=== PATIENT | male | born 1980 | race Caucasian/White ===

== ENCOUNTER 2020-12-18 17:14 | Emergency (ER) | payer SELFPAY ==
[2020-12-18 17:16] VITALS: BP 137/100; PULSE 100; PULSE 87; RESP 13; RESP 16; TEMP 36.9; O2SAT 100; O2SAT 99; BMI 27.1
--- NOTE | 2020-12-18 17:42 | EKG12_ITS ---
Test Reason : ABD PAIN Blood Pressure : / mmHG Vent. Rate : 072 BPM Atrial Rate : 072 BPM P-R Int : 140 ms QRS Dur : 084 ms QT Int : 378 ms P-R-T Axes : 020 077 060 degrees QTc Int : 413 ms Normal sinus rhythm Normal ECG Confirmed by PATEL CHILD, TO ([id number]), supervising film or videotape editor NORMA HOROWITZ ([id number]) on 12/22/2020 9:35:27 AM Referred By: HEATHER Confirmed By:TO SWEENEY MD
--- NOTE | 2020-12-18 17:46 | NURSING ---
NO OLD EKGS
[2020-12-18 17:52] LABS: Absolute Lymphocyte Count 2.14 X10^3/uL (0.83-4.51); Absolute Neutrophil Count 6.2 X10^3/uL (2.0-7.7); Basophil# 0.08 X10^3/uL; Basophil% 0.9 % (0-1); Eosinophil# 0.22 X10^3/uL; Eosinophils% 2.4 % (0-5); Hematocrit 45.7 % (40-54); Hemoglobin 15.5 g/dL (13.0-16.5); Lymphocyte # 2.14 X10^3/ul (4.0); Lymphocyte % 22.9 % (19-41); Mean Corp Hgb Conc 33.9 g/dL (32-36); Mean Corpuscular Hgb 29.8 pg (27.0-32.0); Mean Corpuscular Volume 87.7 fL (80-94); Mean Platelet Vol. 9.6 fl (6.2-12.0); Monocyte# 0.72 X10^3/uL; Monocyte% 7.7 % (0-10); NRBC Flagged by Analyzer 0 % (0-5); Neutrophil # 6.15 X10^3/uL (2.7-7.7); Neutrophil % 65.6 % (47-70); Platelet Count 247 K/mm3 (150-450); RBC Distribution Width CV 11.9 % (11.6-14.6); RBC Distribution Width SD 38.3 fl (35.1-43.9); Red Blood Count 5.21 M/mm3 (4.6-6.2); White Blood Count 9.4 K/mm3 (4.4-11.0)
[2020-12-18] MEDS: 0.9% Normal Saline 1,000 ML 1000 ML IV (17:55)
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
[2020-12-18 18:16] LABS: AST(SGOT) 21 U/L (15-37); Alanine Aminotransfer ALT/SGPT 43 U/L (16-61); Albumin, Serum 3.8 g/dL (3.2-5.0); Alkaline Phosphatase 88 U/L (45-117); Anion Gap 6 (5-15); BUN 9 mg/dL (7-18); Calcium,Total 9.1 mg/dL (8.5-10.1); Chloride 105 mmol/L (98-107); EST Glomerular Filtration Rate 87 mL/min (>60); Est Glom Filt Rate - Afr Amer 106 mL/min (>60); Estimated Creatinine Clearance 100.38 ml/min; Globulin 4.5 g/dL (2.2-4.2); Glucose 93 mg/dL (74-106); Potassium 3.7 mmol/L (3.5-5.1); Protein, Total 8.3 g/dL (6.4-8.2); Sodium Level 140 mmol/L (136-145)
[2020-12-18 18:17] LABS: Bacteria 0 SEEN /hpf (None Seen); Squamous Epithelial Cells - UA 0 SEEN /hpf (0-5)
[2020-12-18 18:26] LABS: Color, Urine Yellow (Yellow); Glucose, Dipstick Normal (Normal); Ketone-Dipstick 5 mg/dl (Negative); Leukocyte Esterase-Dipstick Negative /ul (Negative); Nitrite-Dipstick Negative (Negative); Occult Blood-Urine Negative /ul (Negative); Protein-Dipstick Negative (Negative); Urine Bilirubin Dipstick Negative (Negative); Urine Clarity Clear (Clear); Urine Urobilinogen Normal (Normal)
[2020-12-18 18:37] LABS: Mucous, Urine 2+ /hpf (<or=2+)
[2020-12-18 18:39] LABS: Red Blood Cells-Urine 0-5 SEEN /hpf (0-5)
[2020-12-18 18:40] LABS: White Blood Cells 0-5 SEEN /hpf (0-5)
[2020-12-18 19:14] VITALS: BP 137/93; PULSE 87; RESP 18; O2SAT 96
== END 2020-12-18 19:15 | disposition home or self-care (01) ==
PROVIDERS: Emergency Provider Emergency Medicine
DX: R40.4 Transient alteration of awareness (principal); Z87.891 Personal history of nicotine dependence; Z85.01 Personal history of malignant neoplasm of esophagus
CPT/HCPCS: 80048; 80076; 81001; 84484; 85025; 93005; 96360; 99285; J7030; A4216

== ENCOUNTER 2021-12-25 01:42 | Emergency (ER) | payer SELFPAY ==
[2021-12-25] VITALS (10 sets, daily range): BP systolic 121–140; BP diastolic 79–92; PULSE 78–112; RESP 14–18; TEMP 36.7–37.2; O2SAT 97–100; BMI 27.1
--- NOTE | 2021-12-25 02:13 | RAD_ITS ---
STUDY: X-RAY - RIGHT TIBIA AND FIBULA REASON FOR EXAM: Male, 41 years old patient with right leg injury. TECHNIQUE: AP and lateral view(s) of the tibia and fibula were obtained. COMPARISON: None. FINDINGS: Normal visualized tibia. Normal visualized fibula. There is no demonstrated acute fracture. There is non-specific soft tissue swelling. RAD/Tibia & Fibula 2 Views IMPRESSION: Soft tissue swelling without obvious fracture. If there is still clinical concern for acute fracture, follow-up radiographs in 7-10 days maybe helpful in evaluating a healing radiographically occult fracture. Electronically Signed: Franci Nieves MD at 3:23 EDT ,
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
--- NOTE | 2021-12-25 02:20 | RAD_ITS ---
STUDY: X-RAY - RIGHT ANKLE REASON FOR EXAM: Male, 41 years old patient with right-sided ankle injury. TECHNIQUE: 3 view(s) of the ankle. COMPARISON: Prior comparison studies are not available for review at this time. FINDINGS: Normal visualized distal tibia and fibula. Normal medial and lateral malleoli. Normal tibiotalar articulation and ankle mortise. There is a posterior calcaneal enthesophyte. The tarsal bones have generally normal appearance and alignment. Joint spaces are within normal limits. There is no demonstrated fracture. There is moderately severe soft tissue swelling and small ankle effusion. RAD/Ankle min 3 Views IMPRESSION: Soft tissue swelling and ankle effusion. If there is still clinical concern for acute fracture, follow-up radiographs in 7-10 days maybe helpful in evaluating a healing radiographically occult fracture. Electronically Signed: Franci Nieves MD at 3:21 EDT ,
[2021-12-25 04:10] LABS: Absolute Lymphocyte Count 1.95 X10^3/uL (0.83-4.51); Absolute Neutrophil Count 6.8 X10^3/uL (2.0-7.7); Basophil# 0.07 X10^3/uL; Basophil% 0.7 % (0-1); Eosinophil# 0.27 X10^3/uL; Eosinophils% 2.7 % (0-5); Hematocrit 39.8 % (40-54); Hemoglobin 13.4 g/dL (13.0-16.5); Lymphocyte # 1.95 X10^3/ul (0.83-4.51); Lymphocyte % 19.6 % (19-41); Mean Corp Hgb Conc 33.7 g/dL (32-36); Mean Corpuscular Hgb 29.9 pg (27.0-32.0); Mean Corpuscular Volume 88.8 fL (80-94); Mean Platelet Vol. 9.1 fl (6.2-12.0); Monocyte# 0.79 X10^3/uL; NRBC Flagged by Analyzer 0 % (0-5); Neutrophil # 6.81 X10^3/uL (2.7-7.7); Neutrophil % 68.6 % (47-70); Platelet Count 229 K/mm3 (150-450); RBC Distribution Width CV 12.5 % (11.6-14.6); Red Blood Count 4.48 M/mm3 (4.6-6.2); White Blood Count 9.9 K/mm3 (4.4-11.0)
[2021-12-25 04:24] LABS: Alcohol, Blood (Medical)-Serum < 3.0 mg/dL
[2021-12-25 04:26] LABS: Anion Gap 7 (5-15); BUN 15 mg/dL (7-18); BUN/Creat Ratio 21.2 RATIO (10-20); Calcium,Total 8.9 mg/dL (8.5-10.1); Chloride 108 mmol/L (98-107); Creatinine, Serum 0.71 mg/dL (0.70-1.30); EST Glomerular Filtration Rate 129 mL/min (>60); Est Glom Filt Rate - Afr Amer 156 mL/min (>60); Estimated Creatinine Clearance 139.95 ml/min; Glucose 90 mg/dL (74-106); Potassium 3.4 mmol/L (3.5-5.1); Sodium Level 140 mmol/L (136-145)
[2021-12-25 05:49] LABS: Amphetamine Urine VISTA POSITIVE (<1000 ng/mL); Barbiturate Urine VISTA NEGATIVE (< 200 ng/mL); Benzodiazepine Urine VISTA NEGATIVE (< 200 ng/mL); Cocaine Urine VISTA NEGATIVE (< 300 ng/mL); Ecstacy Urine VISTA POSITIVE (< 500 ng/mL); Methadone Urine VISTA NEGATIVE (< 300 ng/mL); PCP Urine VISTA NEGATIVE (< 25 ng/mL); THC Urine VISTA NEGATIVE (< 50 ng/mL); Vista UDS pH Range 5
--- NOTE | 2021-12-25 10:46 | ED.RN ---
PER CRISIS PT TO BE PINK SLIPPED. PT ASSISTED IN PLACING GOWN AND REMOVING STREET CLOTHES. PT GLASSES AT BEDSIDE FOR VISUAL AIDE. PT INQUIRING ABOUT X-RAY RESULTS. MD AWARE. PT GIVEN SNACK AND DRINK. PT RESTING IN ROOM WITH EYES CLOSED. RESPIRES EVEN AND UNLABORED.
--- NOTE | 2021-12-25 19:17 | ED.RN ---
pt awoke from sleep and asked what he was still here for. pt had not been told by staff, crisis, or prior doctors about psychiatric placement. he was informed by this rn that we are awaiting placement at a psychiatric facility. he became verbally confrontational and loud. pt requested his personal belongings and a phone to call his dad. I explained that he couldn't leave and that dr would be in to explain need for crisis evaluation. father was called at pt request. he screamed into the phone. help me dad. they are senting me psych. after brief phone call pt stated just wait till i get out of here. he's . just wait. ill find edwar mina. threats were passed onto hro on staff. medications offered to patient to help him relax. when asked he said i good. i don't need anything right now. pt began to cry in bed. pt is resting in bed requesting to call his girlfriend. no phone number on file. shila sevilla rn [phone]
--- NOTE | 2021-12-25 22:00 | ED.RN ---
In to speak with pt, he pt notes he wante to know what was going on with his right leg, explained that xray shows no fracture however, is swollen and recommend that it be followed up on if it still bothers him. Asked pt if he wanted anything for pain, however he said no. He did say he was having a lot of anxiety. He did agree that I could ask the doctor to have something for anxiety. Spoke with Dr. Liu about pt, she gave order for po Ativan 0.5 mg and 400 mg of ibuprofen. took meds to pt, he refused at this time. Pt is aware he can call for those meds if he would like. Also offered to wrap ankle, he refused.
--- NOTE | 2021-12-25 22:20 | ED.RN ---
CALLED CRISIS FOR A UPDATE ON THE PATIENT, CRISIS FORGOT TO CALL US WITH THE ACCEPTANCE. THE PATIENT IS GOING TO [facility] IN [place]. THEY HAVE SET UP THE TRANSPORT ALREADY WITH [facility]. THIS PATIENT CANT LEAVE UNTIL 0800, [facility] WILL BE HERE AROUND [address] MANJARREZ IS ACCEPTING, NURSE TO NURSE IS [phone].
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
[2021-12-25] MEDS: Ziprasidone IM 20 MG/ML VIAL IM (23:34)
[2021-12-26] MEDS: Ibuprofen 200 MG Tablet 400 MG PO (00:09)
--- NOTE | 2021-12-26 01:00 | ED.RN ---
PT TAKEN OUT OF 2 RESTRAINTS, RESTING, CALM, NO DISTRESS
--- NOTE | 2021-12-26 01:15 | ED.RN ---
PT OUT OF ALL RESTRAINTS, RESTING IN BED, COOPERATIVE
[2021-12-26 04:00] VITALS: RESP 16
[2021-12-26 05:55] VITALS: RESP 14
[2021-12-26 06:11] VITALS: BP 134/74; PULSE 84; RESP 16; O2SAT 96
--- NOTE | 2021-12-26 08:24 | NURSING ---
[facility] [facility] here on standby. ems here for transport to take pt to [facility]. pt yelling and ripping off gown saying take me to [facility] because i aint going to a mental hospital pt very aggitated and pacing in room attempting to leave. new order for elijah kendall. 3 police officers at bedside. rn anesthetist in to administer med
--- NOTE | 2021-12-26 09:06 | ED.RN ---
0838-pt left with pd to caged vehicle for transport to [facility]. pt report called to lexus gutierrez
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
[2021-12-26] MEDS: LORazepam 2 MG/ML Syringe IM (09:15)
[2021-12-26] MEDS: Ziprasidone IM 20 MG/ML VIAL IM (09:15)
--- NOTE | 2021-12-26 09:25 | ED.RN ---
d was called to asssist in getting pt to transport vehicle. pt was combative and threatening and requesting to go to assisted. once pt realized he was going to get medicated pt decided to cooperate. pt was ambulated to vehicle with the assistance of d. transport left with pt. dispatch later called and stated the transport was returning with the pt and [facility] was called to assist. pt was yelling screaming in the back seat and trying to kick in the cage as well as was trying to climb into the trunk and was actively pulling things out of the trunk. upon arrival to the er pt was placed immediately on the cart with the assistance of jayleen and restraints were applied. pt was taken into rm 4. when attempted to medicate pt he sat up ands was trying to flail around and grab staff. pt was assisted back on the the bed and arms held to protect staff by this nurse as another nurse then medicated the pt. once he was released he again attempted to grab the other nurse and was placed back onto his back on the bed and was told his behavior will not be tolerated and this is why he was being medicated.
[2021-12-26 10:00] VITALS: BP 133/86; PULSE 100; RESP 16; O2SAT 96
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
--- NOTE | 2021-12-26 10:56 | ED.RN ---
1020-pt quiet in bed sedated for past 30min and meeting criteria of dc restraints. pt restraints dc'd and will set up transport for pt to go to [facility] again
--- NOTE | 2021-12-26 11:26 | ED.RN ---
pt up to wc and following direction and cooperative but drowsy. vital signs stable. belongings sent with pt.
--- NOTE | 2021-12-26 11:49 | ED.RN ---
transport arrived and pt taken out to vehicle by wheelchair without difficulty. pt loaded and seat belt placed. [facility] called with a [facility] as requested and they then stated the pt needed to be held for 4 hrs. it was explained to them that when they were notified pt was returning and would be medicated they told nurse they were still accepting him and just needed to be notified of a new eta. they ten stated no he should not leave [facility] until 1300. explained the pt was already on his way. [facility] stated he was not to leave before 1300. called to notify transport, informed dr canela and dr vasquez of the situation and both felt that it was unreasonable since we followed their instructions and the pt should continue on transport.
== END 2021-12-26 11:30 ==
PROVIDERS: Emergency Medicine; Emergency Provider Emergency Medicine; Visit Provider Emergency Medicine
DX: F22 Delusional disorders (principal); S80.11XA Contusion of right lower leg, initial encounter; S93.401A Sprain of unspecified ligament of right ankle, initial encounter; W19.XXXA Unspecified fall, initial encounter; F99 Mental disorder, not otherwise specified; M25.432 Effusion, left wrist; F17.210 Nicotine dependence, cigarettes, uncomplicated; F41.9 Anxiety disorder, unspecified; Z78.1 Physical restraint status
CPT/HCPCS: 73590; 73610; 80048; 80307; 82077; 85025; 87811; 96372; 99282; J3486

== ENCOUNTER 2023-02-13 13:11 | Outpatient (REF) | payer SELFPAY ==
[2023-02-13 13:12] VITALS: BP 138/65; PULSE 105; RESP 18; TEMP 37.1; O2SAT 97; BMI 24.1
[2023-02-13 13:15] VITALS: BP 155/96; PULSE 112; RESP 18; O2SAT 96
--- NOTE | 2023-02-13 13:20 | RAD_ITS ---
STUDY: X-RAY - RIGHT TIBIA AND FIBULA REASON FOR EXAM: Male, 43 years old. Pain following injury. TECHNIQUE: 3 view(s) of the tibia and fibula were obtained. COMPARISON: None. FINDINGS: Normal visualized tibia. Normal visualized fibula. The soft tissue structures are unremarkable. RAD/Tibia & Fibula 2 Views IMPRESSION: Normal x-ray examination of the tibia and fibula. Electronically Signed: Juan Carlos Lucero MD at 14:08 EDT ,
--- NOTE | 2023-02-13 13:20 | RAD_ITS ---
STUDY: X-RAY CHEST REASON FOR EXAM: Male, 43 years old. Chest wall trauma TECHNIQUE: PA and lateral views of the chest. COMPARISON: None. FINDINGS: The lungs are clear and expanded. There is no demonstrated pleural abnormality. Normal size heart. Normal mediastinum and angel. Normal visualized pulmonary arteries. Normal visualized aortic arch and descending thoracic aorta. Normal visualized thoracic spine. Normal visualized ribs, clavicles, and shoulders. There is no demonstrated abnormality of the visualized soft tissue structures of the upper abdomen. RAD/Chest PA and Lateral IMPRESSION: Normal x-ray examination of the chest. Electronically Signed: Juan Carlos Lucero MD at 14:07 EDT ,
--- NOTE | 2023-02-13 13:20 | RAD_ITS ---
STUDY: X-RAY - PELVIS AND RIGHT HIP REASON FOR EXAM: Male, 43 years old. Right hip trauma TECHNIQUE: 3 views of the pelvis and hip. COMPARISON: None. FINDINGS: There is a non-specific bowel gas pattern. Normal visualized soft tissue structures. Normal bilateral iliac wings, sacroiliac joints and visualized sacrum. Normal bilateral superior and inferior pubic rami. Normal pubic symphysis. Normal bilateral ischial tuberosities. Normal visualized femoral head. Normal acetabulum. Normal hip joint. RAD/HIP, UNI W/ Pelvis 2-3 Views IMPRESSION: Normal x-ray examination of the pelvis and hip. Electronically Signed: Juan Carlos Lucero MD at 14:08 EDT ,
--- NOTE | 2023-02-13 13:22 | EDS_ITS ---
HPI History of Present Illness Chief Complaint: Lower Extremity Injury Detail of Chief Complaint: Restrained by the police complaining pain. Informant: patient Onset/Context/Timing Onset: Today Context: Sudden Onset Timing: Continuous Current Severity: Mild Maximum Severity: Mild Narrative Narrative: 43-year-old male states he has a past medical history of esophageal cancer. History of methamphetamine abuse. Today the police were at his residence and were arresting him when it became physical. He had to restrain him. He states he is having discomfort to his chest wall, right hip and right lower leg. Prior to the incident he denies any complaints. Prior similar symptoms: No Recent Illness/Hospitalization: No PFSH PFSH Home Medications NK 12/18/20 [History Last Taken Unknown] Allergy/AdvReac Type Severity Reaction Status Date / Time bee venom protein (honey bee) Allergy Anaphylaxis Verified 02/13/23 13:23 Penicillins [PCN] Allergy NEEDS Verified 02/13/23 13:23 FOLLOW-UP Social History Smoking Status: Current every day smoker tobacco type: cigarettes ROS ROS ED ROS Narrative Denies recent illness. Review of Systems ROS Unobtainable: Denies due to encephalopathy Constitutional Constitutional ED: Denies chills or fever(s) Eyes Eyes: Denies blurry vision ENT ENT ED: Denies ear pain Cardiovascular Cardiovascular: Reports chest pain Respiratory/Chest Respiratory/Chest: Denies cough or dyspnea Gastrointestinal Gastrointestinal: Denies abdominal pain Genitourinary Genitourinary ED: Denies dysuria or hematuria Musculoskeletal Musculoskeletal: Denies arthralgias Integumentary Denies abscess Neurologic Neurologic: Denies headache(s) Psychiatric Psychiatric: Denies anxiety Endocrine Endocrinology: Denies cold intolerance Hematologic/Lymphatic Hematologic/Lymphatic: Reports none Allergic/Immunologic Allergic/Immunologic ED: Denies mouth swelling or tongue swelling EXAM Physical Exam Narrative Exam Narrative: -year-old male no acute distress. Handcuffed to the bed with his right wrist. Vital signs stable afebrile. Pulse ox 97% on room air no hypoxia. H EENT exam pupils round reactive light. No signs of trauma to his face or dentition. Scalp nontender. No lacerations or hematomas. C-spine nontender trachea midline. Back nontender. Lungs clear to auscultation bilaterally. Heart regular rhythm rate about 105 no murmur. Chest wall mild diffuse tenderness. No crepitus or subcu air. No bruising. Abdomen soft nontender normal bowel sounds no peritoneal signs. No bruising. Pelvic girdle intact. Complaining of tenderness to his right hip. No shortening or rotation. Able to flex extend both knees. Dorsi plantarflexion normal both feet. Tenderness to his anterior right castillo. No deformity. Neurologically is awake and alert with no focal motor deficits. Exam benign. Const Vital Signs: 02/13/23 13:12 02/13/23 13:15 02/13/23 13:28 Temperature 98.7 F Temperature Source Temporal Pulse Rate 105 H 112 H Respiratory Rate 18 18 Respiratory Effort Normal Labored Blood Pressure 138/65 H 155/96 H Blood Pressure Mean 89 115 Pulse Ox 97 96 Oxygen Delivery Method Room Air Room Air Positive well nourished and well developed; Negative for obese, cachectic, contractures or unkempt General Appearance ED: well developed and NAD; Negative for unkempt, cachectic, contractures, cyanotic, diaphoretic or pallor Nutritional Appearance: Negative for cachectic or obese HEENT Reports moist mucous membranes; Denies dry mucous membranes Negative for trauma or tenderness Mouth ED: No dry mucous membranes Mouth: No dry mucous membranes Eyes PERRL and EOMs intact bilaterally General Eye ED: Negative for pale conjunctiva or scleral icterus Neck no lymphadenopathy, supple and no JVD General: Negative for tenderness Lymph Lymphatic: Negative for other Chest Wall inspection of chest normal; Negative for palpation of chest normal Chest Narrative: Anterior chest wall tenderness. No crepitance or subcu air. No bruising. Resp normal respiratory effort Effort and Inspection: Negative for retractions Auscultation: Negative for rales, rhonchi or wheezes Cardio regular rate, regular rhythm, S1 normal heart sound, S2 normal heart sound and no murmurs Palpation: Negative for palpable S3 Rate: Negative for bradycardia Rhythm: Negative for abnormal rhythm GI normal to inspection, nondistended, normoactive bowel sounds, non-tender, non- distended and no masses; Negative for hepatosplenomegaly Inspection: Negative for abdominal distention Auscultation: normoactive bowel sounds Palpation: soft; Negative for tender or guarding Back/Spine no CVA tenderness General Back: Negative for CVA tenderness Cervical Spine: Negative for cervical spine tenderness Thoracic Spine / Upper Back: Negative for thoracic spinal tenderness Lumbar Spine / Lower Back: Negative for lumbar spinal tenderness Extremity normal to inspection Extremity Narrative: Tenderness right anterior castillo. No deformity. Right foot neurovascular intact. Mild tenderness right hip no shortening or rotation. No deformity. General Extremety ED: Yes edema and tenderness General Extremity: edema Neuro oriented x3 and CN's II-XII intact bilaterally Sensorium / Orientation: alert; Negative for orientation impaired, lethargic or stuporous Motor Exam: strength 5/5 throughout Psych mental status grossly normal Appearance: Negative for unkempt Attitude: No agitated Mood & Affect: Negative for depressed, anxious or tearful Skin no rashes or lesions noted, no wounds and skin turgor normal General Skin Exam: elasticity normal; Negative for jaundice or pallor Lesions: No lesion noted Rashes: No rashes noted Trauma: Negative for abrasion Wounds: Negative for wounds noted MDM MDM MDM Narrative Medical decision making narrative: 43-year-old male arrested by police. After the arrest he was complaining of chest wall, right hip and right lower leg pain. It was not physical on her occasion to get him subdued. X-rays to be obtained. Exam is benign. Repeat exam patient doing well at 1:52 PM. I went over his x-ray results with him they were all unremarkable. No fractures or dislocations. He will be discharged with the police to go to halfway. He is currently under arrest. He is medically cleared. Motrin and Tylenol for any pain. Radiography Chest X-Ray - ED: 2 View, Read by ED Physician, Heart, Lungs, Mediastinum, Bony Structures, No Acute Disease and Chronic Changes Diagnostic Testing: Right hip and pelvis x-ray multiple views, interpreted by myself shows no acute abnormality. No fracture or dislocation. Right tib-fib x-ray 2 views AP and lateral interpreted by myself shows no acute fracture or dislocation. Chest x-ray, 2 views AP and lateral shows no acute injury. No fracture or dislocation no pneumothorax. Normal cardiac silhouette. Normal mediastinum. Discharge Plan Triage Chief Complaint: Lower Extremity Injury ED Provider: Alexis Craig Dx/Rx/DC Orders Clinical Impression: Chest wall contusion, Contusion of hip, right, Contusion of leg, right Instructions: ED Contusion, Lower Extremity, ED Chest Wall Contusion Prescriptions: No Action NK Primary Care Provider: Care Physician,No Primary Referrals: Destiny Ramon [Non-Staff] - 1 Week if not improving Care Physician,No Primary [Primary Care Provider] - Activity Restrictions/Additional Instructions: Tylenol and Motrin for any pain. The x-rays of your chest, hip and lower leg showed no broken bones. You have bruises you can to be sore. Ice to any sore areas. Follow-up with not improving. Disposition Disposition: Home, Self Care
[2023-02-13 14:04] VITALS: BP 154/98; PULSE 100; RESP 18
== END 2023-02-13 14:05 | disposition home or self-care (01) ==
LOC: ED 13:11
PROVIDERS: Visit Provider Emergency Medicine
DX: S80.11XA Contusion of right lower leg, initial encounter (principal); F11.11 Opioid abuse, in remission; S20.20XA Contusion of thorax, unspecified, initial encounter; S70.01XA Contusion of right hip, initial encounter; F17.210 Nicotine dependence, cigarettes, uncomplicated; Z85.01 Personal history of malignant neoplasm of esophagus; Y04.0XXA Assault by unarmed brawl or fight, initial encounter
CPT/HCPCS: 36415; 71046; 73502; 73590; 99285

== ENCOUNTER 2023-03-10 18:25 | Outpatient (REF) | payer SELFPAY ==
[2023-03-10 18:25] VITALS: BP 139/87; PULSE 93; RESP 18; TEMP 37.1; O2SAT 98; BMI 24.6
--- NOTE | 2023-03-10 18:45 | CT_ITS ---
STUDY: CT BRAIN WITHOUT CONTRAST REASON FOR EXAM: Male, 43 years old. Head trauma RADIATION DOSAGE (If Supplied By Facility): CTDIvol = ( 44.99 ) mGy, DLP = ( 829.85 ) mGycm TECHNIQUE: Transaxial CT imaging of the brain was performed without administration of intravenous contrast material. Individualized dose optimization techniques were used for this CT. COMPARISON: No relevant priors. FINDINGS: Normal soft tissue structures. Normal calvarium. Normal size ventricles and extra-axial spaces for the patient''s age. Normal white matter tracts of the cerebral hemispheres. Normal basal ganglia and thalami. Normal brainstem. Normal cerebellum. There is no intracranial hemorrhage. There are no findings of an acute ischemic infarction. There is mucoperiosteal inflammatory disease of the left maxillary consistent with mild chronic sinusitis. CT/Brain/Head without Contrast IMPRESSION: Normal unenhanced CT scan of the brain. Electronically Signed: Taye Rodriguez (Brooks), at 19:27 EDT ,
--- NOTE | 2023-03-10 18:46 | CT_ITS ---
STUDY: CT ABDOMEN AND PELVIS WITHOUT CONTRAST REASON FOR EXAM: Male, 43 years old. Pain RADIATION DOSAGE (If Supplied By Facility): CTDIvol = ( 6.82 ) mGy, DLP = ( 373.28 ) mGycm TECHNIQUE: Transaxial images were obtained from the dome of the diaphragm to the symphysis pubis without oral contrast, and without intravenous contrast. Sagittal and coronal images were reconstructed. Individualized dose optimization techniques were used for this CT. COMPARISON: None. FINDINGS: The visualized lung bases are unremarkable. The visualized portions of the heart are within normal limits. Normal liver. Normal gallbladder and extrahepatic biliary system. Normal spleen. Normal pancreas. Normal bilateral adrenal glands. Normal right kidney. Normal left kidney. Normal visualized stomach. Normal small intestine. Normal colon. The appendix is visualized and appears normal. There is atherosclerosis of the distal abdominal aorta with relative wall thickening and visible displacement of calcific atherosclerosis away from the outer aortic wall (image [id number] series 2). There is slight induration of the retroperitoneal fat adjacent to the aorta as seen on image 77 of series 602. Normal inferior vena cava. Normal retroperitoneum. Normal urinary bladder. There is a small umbilical hernia containing fat. Normal osseous structures. CT/Abdomen/Pelvis without Cont IMPRESSION: 1. No hydronephrosis or urinary tract calcifications. 2. Limited evaluation of the abdominal aorta given lack of IV contrast. However, relative wall thickening and periaortic fat stranding adjacent to the distal aorta can be associated with aortitis. No comparison study. Recommend evaluation with CT with IV contrast. Electronically Signed: Taye Rodriguez (Brooks), at 19:32 EDT ,
--- NOTE | 2023-03-10 18:46 | EKG12_ITS ---
Test Reason : DYSRHYTHMIA Blood Pressure : / mmHG Vent. Rate : 078 BPM Atrial Rate : 078 BPM P-R Int : 138 ms QRS Dur : 082 ms QT Int : 352 ms P-R-T Axes : 027 065 051 degrees QTc Int : 401 ms Normal sinus rhythm Normal ECG Confirmed by PATEL CHILD, TO ([id number]), script editor NORMA HOROWITZ ([id number]) on 03/13/2023 8:39:33 AM Referred By: JUSTO Confirmed By:TO SWEENEY MD
--- NOTE | 2023-03-10 18:47 | EDS_ITS ---
HPI HPI - GI History of Present Illness Chief Complaint: Head Injury Informant: patient Abdominal Pain/Flank Pain Onset: Today Context: Sudden Onset Timing: Continuous Quality: Cramping Location: Left Flank Current Severity: Mild Maximum Severity: Moderate Worsened by: Nothing Nausea/Vomiting/Emesis GI Symptom: Negative for Nausea or Vomiting Diarrhea/Melena/Hematochezia GI Symptom: Negative for Diarrhea, Melena or Hematochezia Associated Symptoms Associated Symptoms: Negative for Dysuria, Frequency, Hematuria or Urgency Narrative Narrative: 43-year-old male history of esophageal cancer, seizures, diabetes and kidney stones. Said he was in [facility] today currently is incarcerated. Developed left flank pain passed out when he fell he struck his head causing him to have a head injury. Denies any dysuria or hematuria. No fever. No chest pain or shortness of breath. The fall and syncopal episode after that was unwitnessed. There is a deputy in the room. He did not witness the patient's fall. Prior similar symptoms: Yes Recent Illness/Hospitalization: No PFSH PFSH Home Medications NK 12/18/20 [History Last Taken Unknown] Allergy/AdvReac Type Severity Reaction Status Date / Time bee venom protein (honey bee) Allergy Anaphylaxis Verified 02/13/23 13:23 Penicillins [PCN] Allergy NEEDS Verified 02/13/23 13:23 FOLLOW-UP Social History Smoking Status: Current every day smoker tobacco type: cigarettes ROS ROS ED ROS Narrative Left flank pain. Review of Systems ROS Unobtainable: Denies due to encephalopathy Constitutional Constitutional ED: Denies chills, fever(s) or subjective ENT ENT ED: Denies ear pain, rhinorrhea or sore throat Cardiovascular Cardiovascular: Denies chest pain or palpitations Respiratory/Chest Respiratory/Chest: Denies cough or dyspnea Gastrointestinal Gastrointestinal: Reports abdominal pain; Denies constipation, diarrhea, melena, nausea or vomiting Genitourinary Genitourinary ED: Denies dysuria or hematuria Musculoskeletal Musculoskeletal: Denies arthralgias or back pain Integumentary Denies abscess Neurologic Neurologic: Denies headache(s) Psychiatric Psychiatric: Denies anxiety Endocrine Endocrinology: Denies polydipsia Hematologic/Lymphatic Hematologic/Lymphatic: Denies easy bleeding Allergic/Immunologic Allergic/Immunologic ED: Denies mouth swelling or tongue swelling EXAM Physical Exam Narrative Exam Narrative: 43-year-old male no acute distress. He has both handcuffs on and ankle cuffs. There is a deputy in the room. Patient is in no distress. Vital signs are stable afebrile. H EENT exam TMs normal bilaterally. He does have a soft tissue contusion left forehead is prior to which is long by an inch wide. There is no laceration or bleeding. Pupils round reactive light. Dentition intact. No other scalp tenderness or hematomas. No lacerations. C-spine, thoracic and lumbar spine and back are nontender. Chest wall nontender. Lungs are clear. Heart regular rhythm. Ribs are nontender. Abdomen he complains of left flank pain. Is not significantly reproducible. There is no signs of trauma on his abdomen. No bruising. Right upper and lower quadrants are unremarkable. No distention. No peritoneal signs. Moving all 4 extremities. Neurovascular intact. Normal strength. Neurologically is awake and alert. Patient knows he is in the hospital. He knows the month. He knows the season. Const Vital Signs: 03/10/23 18:25 03/10/23 19:01 Temperature 98.7 F Temperature Source Temporal Pulse Rate 93 Respiratory Rate 18 Respiratory Effort Normal Blood Pressure 139/87 H Blood Pressure Mean 104 Pulse Ox 98 Oxygen Delivery Method Room Air Positive well nourished and well developed; Negative for obese, cachectic, contractures or unkempt General Appearance ED: well developed and NAD; Negative for unkempt, cachectic or contractures Nutritional Appearance: Negative for cachectic or obese HEENT Reports moist mucous membranes normocephalic, trauma and tenderness; Negative for atraumatic Eyes PERRL and EOMs intact bilaterally General Eye ED: Negative for pale conjunctiva or scleral icterus Neck no lymphadenopathy, supple and no JVD General: Negative for tenderness Carotids: Negative for other Lymph Lymphatic: Negative for other Resp normal respiratory effort and clear to auscultation bilaterally Effort and Inspection: Negative for respiratory distress Auscultation: Negative for rales, rhonchi or wheezes Cardio regular rate, regular rhythm, S1 normal heart sound, S2 normal heart sound and no murmurs Rate: Negative for bradycardia Rhythm: Negative for abnormal rhythm GI non-tender, non-distended and no masses Inspection: Negative for abdominal distention Auscultation: normoactive bowel sounds Palpation: soft; Negative for tender or guarding Back/Spine no CVA tenderness General Back: Negative for CVA tenderness Cervical Spine: Negative for cervical spine tenderness Thoracic Spine / Upper Back: Negative for thoracic spinal tenderness Lumbar Spine / Lower Back: Negative for lumbar spinal tenderness Coccyx: Negative for other Extremity full ROM General Extremety ED: Negative for edema or tenderness General Extremity: Negative for edema Neuro CN's II-XII intact bilaterally, moves all extremities and no sensory deficits n oted Sensorium / Orientation: alert, oriented to person, oriented to place and oriented to time; Negative for orientation impaired, confused, lethargic or stuporous Motor Exam: strength 5/5 throughout; Negative for general weakness or strength abnormal Psych mental status grossly normal and thought process normal Appearance: Negative for unkempt Attitude: No agitated Mood & Affect: Negative for depressed, anxious or tearful Skin no wounds Lesions: no lesions Rashes: no rashes Trauma: Negative for abrasion Nails: Negative for discolored MDM MDM MDM Narrative Medical decision making narrative: 43-year-old inmate at the [facility] reportedly left flank pain then either passed out or fell and hit his head had a brief loss of conscious. He does have a left forehead contusion. No NICU witnessed the fall or saw that she lost consciousness. He will obtain a CT of his head due to the head injury which she has trauma to his forehead to rule out intercranial bleed or significant trauma. Although CT flank due to his flank pain history of kidney stones. Urine screening labs and EKG for his reported either syncope or head injury and loss consciousness. Currently his exam is pretty benign. Repeat exam at 8:12 PM patient doing well. Abdomen benign. Abdominal exam unchanged and still nontender. I discussed the test results with the patient. He will be discharged back to [facility]. He is awake and alert. Answering questions. Neurologic exam remains normal. He will be given some Tylenol for mild headache. History & Record Review Discussion w/independent historian: Patient and Other (Moro.) Additional record(s) reviewed:: Prior inpatient record, Prior outpatient record, Prior ED visit and Prior labs Lab Data Attestation: I reviewed the patient's lab results. Lab results narrative: CBC normal. White count 9.6. H&H is 16 and 49. Platelets 204. Electrolytes unremarkable gap of 7. BUN and creatinine 21 and 0.9. Glucose 206. History of diabetes. Urinalysis negative also. No nitrates. No whites or reds. No bacteria. Labs: Laboratory Results - last 24 hr 03/10/23 03/10/23 03/10/23 18:52 18:52 19:54 WBC 9.6 RBC 5.39 Hgb 16.0 Hct 49.2 MCV 91.3 MCH 29.7 MCHC 32.5 RDW Std Deviation 43.5 RDW Coeff of Torsten 13.0 Plt Count 204 MPV 9.3 Immature Gran % (Auto) 0.200 Neut % (Auto) 70.9 H Lymph % (Auto) 21.5 Ralls % (Auto) 6.2 Eos % (Auto) 0.5 Baso % (Auto) 0.7 Absolute Neuts (auto) 6.8 Absolute Lymphs (auto) 2.07 Nucleated RBC % 0 Sodium 140 Potassium 3.7 Chloride 107 Carbon Dioxide 26.0 Anion Gap 7 BUN 21 H Creatinine 0.95 Estim Creat Clear Calc 102.46 Est GFR (MDRD) Af Amer 110 Est GFR (MDRD) Non-Af 91 BUN/Creatinine Ratio 22.1 H Glucose 206 H Calcium 9.5 Urine Color Yellow Urine Clarity Clear Urine pH 5.0 Ur Specific [place] 1.030 Urine Protein 15 H Urine Glucose (UA) 1000 H Urine Ketones Negative Urine Occult Blood 10 H Urine Nitrite Negative Urine Bilirubin Negative Urine Urobilinogen 4 H Ur Leukocyte Esterase Negative Urine RBC 0 SEEN Urine WBC 0 SEEN Ur Squamous Epith Cells 0 SEEN Calcium Oxalate Crystal RARE Urine Bacteria 0 SEEN Urine Mucus 0 SEEN Radiography Diagnostic Testing: Clinical Impression(s) from Imaging Studies Brain CT 03/10/23 18:45 IMPRESSION: Normal unenhanced CT scan of the brain. Electronically Signed: Taye Rodriguez (Brooks), at 19:27 EDT Reading Location ID and State: [facility] / [place] , Service support , Abdomen/Pelvis CT 03/10/23 18:46 IMPRESSION: 1. No hydronephrosis or urinary tract calcifications. 2. Limited evaluation of the abdominal aorta given lack of IV contrast. However, relative wall thickening and periaortic fat stranding adjacent to the distal aorta can be associated with aortitis. No comparison study. Recommend evaluation with CT with IV contrast. Electronically Signed: Taye Rodriguez (Brooks), at 19:32 EDT , Rhythm Strip Rhythm Strip: Sinus Rhythm Rate: 78 Ectopy: None EKG Initial EKG: Attestation: I personally reviewed and interpreted this EKG as follows: Interpretation: Sinus Rhythm and No Acute Injury Pattern Comments: Normal sinus rhythm rate of 78 no acute signs of [place] nor ischemia nor dysrhythmia. Discharge Plan Triage Chief Complaint: Head Injury ED Provider: Alexis Craig Dx/Rx/DC Orders Clinical Impression: Acute flank pain, Head injury, History of diabetes mellitus Instructions: Abdominal Pain, ED Head Injury (Adult) Prescriptions: No Action NK Primary Care Provider: Care Physician,No Primary Referrals: Sindi Stanton MD [Med Staff - [employer]] - As Needed Care Physician,No Primary [Primary Care Provider] - Activity Restrictions/Additional Instructions: Motrin and Tylenol for pain. Follow-up with the [facility] doctor if not improving or return if worse. Disposition Disposition: Home, Self Care Discharge Date/Time: 03/10/23 20:26
[2023-03-10 19:06] LABS: Absolute Lymphocyte Count 2.07 X10^3/uL (0.83-4.51); Absolute Neutrophil Count 6.8 X10^3/uL (2.0-7.7); Basophil# 0.07 X10^3/uL; Basophil% 0.7 % (0-1); Eosinophil# 0.05 X10^3/uL; Eosinophils% 0.5 % (0-5); Hematocrit 49.2 % (40-54); Lymphocyte # 2.07 X10^3/ul (0.83-4.51); Lymphocyte % 21.5 % (19-41); Mean Corp Hgb Conc 32.5 g/dL (32-36); Mean Corpuscular Hgb 29.7 pg (27.0-32.0); Mean Corpuscular Volume 91.3 fL (80-94); Mean Platelet Vol. 9.3 fl (6.2-12.0); Monocyte% 6.2 % (0-10); NRBC Flagged by Analyzer 0 % (0-5); Neutrophil # 6.82 X10^3/uL (2.7-7.7); Neutrophil % 70.9 % (47-70); Platelet Count 204 K/mm3 (150-450); RBC Distribution Width SD 43.5 fl (35.1-43.9); Red Blood Count 5.39 M/mm3 (4.6-6.2); White Blood Count 9.6 K/mm3 (4.4-11.0)
[2023-03-10 19:18] LABS: Anion Gap 7 (5-15); BUN 21 mg/dL (7-18); BUN/Creat Ratio 22.1 RATIO (10-20); Calcium,Total 9.5 mg/dL (8.5-10.1); Chloride 107 mmol/L (98-107); Creatinine, Serum 0.95 mg/dL (0.70-1.30); EST Glomerular Filtration Rate 91 mL/min (>60); Est Glom Filt Rate - Afr Amer 110 mL/min (>60); Estimated Creatinine Clearance 102.46 ml/min; Glucose 206 mg/dL (74-106); Potassium 3.7 mmol/L (3.5-5.1); Sodium Level 140 mmol/L (136-145)
[2023-03-10 20:03] LABS: Bacteria 0 SEEN /hpf (None Seen); Mucous, Urine 0 SEEN /hpf (<or=2+); Red Blood Cells-Urine 0 SEEN /hpf (0-5); Squamous Epithelial Cells - UA 0 SEEN /hpf (0-5); White Blood Cells 0 SEEN /hpf (0-5)
[2023-03-10 20:25] LABS: Color, Urine Yellow (Yellow); Glucose, Dipstick 1000 mg/dl (Normal); Ketone-Dipstick Negative (Negative); Leukocyte Esterase-Dipstick Negative /ul (Negative); Nitrite-Dipstick Negative (Negative); Occult Blood-Urine 10 /ul (Negative); Protein-Dipstick 15 mg/dl (Negative); Urine Bilirubin Dipstick Negative (Negative); Urine Clarity Clear (Clear); Urine Urobilinogen 4 mg/dl (Normal)
[2023-03-10 20:48] LABS: Calcium Oxalate Crystals Ur RARE /hpf (<or=2+)
== END 2023-03-10 20:26 | disposition home or self-care (01) ==
LOC: ED 18:25
PROVIDERS: Visit Provider Emergency Medicine
DX: R55 Syncope and collapse (principal); E11.9 Type 2 diabetes mellitus without complications; S00.83XA Contusion of other part of head, initial encounter; W01.10XA Fall on same level from slipping, tripping and stumbling with subsequent striking against unspecified object, initial encounter; R10.9 Unspecified abdominal pain; F17.210 Nicotine dependence, cigarettes, uncomplicated
CPT/HCPCS: 70450; 74176; 80048; 81001; 85025; 93005; J7030; A4216

== ENCOUNTER 2023-03-29 12:00 | Emergency (ER) | payer SELFPAY ==
[2023-03-29 12:01] VITALS: BP 135/88; PULSE 101; RESP 18; TEMP 36.7; O2SAT 98
--- NOTE | 2023-03-29 13:30 | EX.ED.VIS.PS ---
HPI HPI - Psych History of Present Illness Chief Complaint: Mental Health Narrative Narrative: Patient presenting from skilled nursing. Patient tells me he lost his home and was living outdoors with his and child. He states that the police told him he had to move. Apparently they found some old warrants and he was arrested. While he was in skilled nursing he was tearful. He states he was afraid to sleep because he was scared of the other prisoners. He states he could hear other voices. He states that the police had him evaluated by crisis because of this behavior. He states he was just scared. He was pink slipped at that time and this was 10 days ago. He states he is not suicidal and not homicidal. He is alert and awake and is mentating normally. He states that he went to court today and was told by the [place] administrative law judge that he can go home. The police brought him to the ER in handcuffs and brought him to the room and then on handcuffed him and left. It is unclear why they left him here with a 10-day old pink slip. The patient is unsure himself. PFSH PFSH Home Medications NK 12/18/20 [History Last Taken Unknown] Allergy/AdvReac Type Severity Reaction Status Date / Time bee venom protein (honey bee) Allergy Anaphylaxis Verified 02/13/23 13:23 Penicillins [PCN] Allergy NEEDS Verified 02/13/23 13:23 FOLLOW-UP Social History Smoking Status: Current every day smoker tobacco type: cigarettes ROS ROS ED Constitutional Constitutional ED: Denies chills, fever(s) or sweats Eyes Eyes: Denies blurry vision or change in vision ENT ENT ED: Denies ear pain or sore throat Cardiovascular Cardiovascular: Denies chest pain, palpitations or racing heartbeat Respiratory/Chest Respiratory/Chest: Denies cough, dyspnea or sputum Gastrointestinal Gastrointestinal: Denies abdominal pain, constipation, diarrhea, nausea or vomiting Genitourinary Genitourinary ED: Denies dysuria, hematuria or urinary frequency Musculoskeletal Musculoskeletal: Denies arthralgias, myalgias or neck pain Integumentary Denies abscess, Abrasions or rash Neurologic Neurologic: Denies headache(s), paresthesias or weakness Psychiatric Psychiatric: Denies anxiety, depression, suicidal ideation or suicidal thoughts Endocrine Endocrinology: Denies polydipsia or polyuria EXAM Physical Exam Const Vital Signs: 03/29/23 12:01 Temperature 98.1 F Temperature Source Temporal Pulse Rate 101 H Respiratory Rate 18 Blood Pressure 135/88 H Blood Pressure Mean 103 Pulse Ox 98 Oxygen Delivery Method Room Air General Appearance ED: Negative for pallor HEENT Reports normocephalic, head/scalp atraumatic and moist mucous membranes Eyes PERRL and EOMs intact bilaterally Neck no lymphadenopathy and supple Chest Wall inspection of chest normal and palpation of chest normal Resp normal respiratory effort and clear to auscultation bilaterally Auscultation: Negative for rales, rhonchi or wheezes Cardio regular rate and regular rhythm GI normal to inspection, nondistended, normoactive bowel sounds and non-distended Auscultation: normoactive bowel sounds Palpation: soft Narrative: Deferred Extremity normal to inspection General Extremety ED: Negative for edema or tenderness General Extremity: Negative for edema Neuro oriented x3 and CN's II-XII intact bilaterally Sensorium / Orientation: alert Motor Exam: strength 5/5 throughout Psych mental status grossly normal Appearance: grossly normal and appropriate Attitude: calm, engaged and No agitated Activity / Motor Behavior: appropriate eye contact Thought Process: normal thought process Thought Content: normal thought content, No suicidality, No homicidality, No phobia(s), No delusion(s), No hallucination(s) and No ideas of reference Memory / Cognition: memory grossly intact Insight: insight good Judgement: judgement good Skin no rashes or lesions noted and no wounds General Skin Exam: Negative for jaundice or pallor MDM MDM MDM Narrative Medical decision making narrative: Patient presenting with no complaint. Apparently had a pink slip in skilled nursing 10 days ago. I looked through all of his paperwork and all of the descriptions of his behavior would be appropriate for a man who was locked in skilled nursing and afraid. He states he is not suicidal or homicidal. His physical exam is unremarkable. I think his insight is good. I spoke with social work who evaluated him and they do not think he needs to be here either. Patient will be discharged home into his own care. Impression: Adult well check Discharge Plan Triage Chief Complaint: Mental Health ED Provider: Moses Womack Dx/Rx/DC Orders Instructions: ED No Diagnosis Prescriptions: No Action NK Primary Care Provider: Care Physician,No Primary Referrals: Care Physician,No Primary [Primary Care Provider] - Disposition Disposition: Home, Self Care
--- NOTE | 2023-03-29 13:45 | CM.ED ---
Social Work Patient arrived via [employer] from senior care discharge. Pt comes with pink slip to [facility] and crisis evaluation from 03/21/2023. Crisis eval indicated AVH, delusions, and paranoia as indicators for hospitalization. Pt denied SI/HI at the time of 03/21 evaluation. Pt had reportedly been awaiting [facility] placement while incarcerated. Pt had court today and was released from senior care. Pt reports continuous improvement black belt said he was free to go and could seek mental health care on his own accord if desired. brought patient here upon senior care discharge with 03/21 eval and pink slip. Pt was not pink slipped to this facility and officer added today's date and [facility] to pink slip from 03/21. SW reviewed crisis assessment and spoke with patient. Patient is not presenting with AVH, delusions or paranoia currently. Pt is not currently suicidal or homicidal. Pt reports he just wants to go home to his dog and partner. Pt reports he was upset at the time of assessment and had asked for someone to talk to patient. Pt reports crying and being distressed about being in senior care. Pt reports the continuous improvement black belt said he is free to go and he is unsure why he was brought here. Pt is not exhibiting the symptoms the previous assessment/pink slip indicated and does not appear to be a danger to himself or others at this time. SW collaborated with [facility] to ensure proper care. Crisis reported 1 previous hospitalization that d/c paperwork showed poss drug induced psychosis. Pt's previous symptoms could also be indicative of drug induced psychosis while in senior care. Pt does deny substance abuse currently. Crisis did not report any other factors that are of concern except that he does not do follow up care. Pt reports he will not take medications and indicated he is jainism which is consistent with lack of follow up. Dr. Womack denies having concerns regarding patient safety/danger to others. Patient does not meet inpatient psych criteria at this time and is no longer exhibiting psychotic symptoms or presenting as a danger to self or others. Pt is appropriate for discharge and patient reports he will follow up with [facility] if he feels it is needed. Pt declines the need for mental health services currently. Camille Chapman PLANTING MATERIAL REMOVER, PAPER SAMPLE CLERK
== END 2023-03-29 13:42 | disposition home or self-care (01) ==
PROVIDERS: Emergency Provider Student in an Organized Health Care Education/Training Program; Visit Provider Student in an Organized Health Care Education/Training Program
DX: Z00.00 Encounter for general adult medical examination without abnormal findings (principal); F17.210 Nicotine dependence, cigarettes, uncomplicated
CPT/HCPCS: 99283